=== PATIENT | male | born 1990 | race Caucasian/White ===

== ENCOUNTER 2017-03-30 14:23 | Outpatient (CLI) | payer OTHER | END 2017-03-30 14:24 | disposition home or self-care (01) | LOC: SC 14:23 | PROVIDERS: ATTEND Internal Medicine Pulmonary Disease | DX: G47.21 Circadian rhythm sleep disorder, delayed sleep phase type (principal); G47.10 Hypersomnia, unspecified; R53.83 Other fatigue | CPT/HCPCS: 99203; 99212 ==

== ENCOUNTER 2017-05-18 20:25 | Outpatient (CLI) | payer OTHER | END 2017-05-18 20:26 | disposition home or self-care (01) | LOC: SC 20:25 | PROVIDERS: ATTEND Internal Medicine Pulmonary Disease | DX: G47.61 Periodic limb movement disorder (principal) | CPT/HCPCS: 95810 ==

== ENCOUNTER 2017-05-28 14:08 | Outpatient (CLI) | payer OTHER | END 2017-05-28 14:09 | disposition home or self-care (01) | LOC: SC 14:08 | PROVIDERS: ATTEND Specialist | DX: G47.61 Periodic limb movement disorder (principal) | CPT/HCPCS: 99212; 99214 ==